=== PATIENT | female | born 1985 | race Two or more races ===

== ENCOUNTER 2019-04-19 21:40 | Emergency (ER) | payer MEDICAID ==
[~2019-04-19] VITALS: Ht 167.6 cm; Wt 72.6 kg
[2019-04-19 21:40] VITALS: BP 160/100
--- NOTE | 2019-04-19 21:40 | NUR ---
ED Nurse Note: Pt brought in by an ambulance with [employer] c/o medical clearance. Per EMS, pt was combative, spitting, not answering questions. Unable to cooperate, poor historian. Not in any distress. Pt is under custody.
--- NOTE | 2019-04-19 21:42 | NUR ---
ED Nurse Note: ERMD at bedside.
--- NOTE | 2019-04-19 21:48 | Emergency Room Report ---
History of Present Illness General Chief Complaint: Medical Clearance Source: Patient, EMS, Law Enforcement Present Illness HPI 34-year-old female history of mental illness, presents with combative nature, patient apparently was vandalizing the facility she was out, refusing to answer my questions unknown aggravating leaving factors severity was moderate, constant patient states "that you are now on a hit list" patient states I do not have answering questions I refused to answer any questions she also states "to take the spit mask off me and I'll spit on you." History is limited because patient refused to answer questions Allergies: Coded Allergies: LORAZEPAM (Verified Allergy, Unknown, 04/19/19) Patient History Limited by: medical condition - Refusing to answer questions Past Medical History: see triage record Reviewed Nursing Documentation: PMH: Agreed; PSxH: Agreed Review of Systems All Other Systems: limited - Refusing to answer questions Physical Exam Vital Signs Date Time Temp Pulse Resp B/P (MAP) Pulse Ox O2 Delivery O2 Flow Rate FiO2 04/19/19 21:33 97.9 98 18 160/100 (120) 100 Room Air General Appearance: well appearing, no apparent distress Head: normocephalic, atraumatic, other - Currently has a spit mask on Eyes: bilateral eye PERRL, bilateral eye EOMI ENT: hearing grossly normal, normal voice Neck: full range of motion, supple Respiratory: no respiratory distress, speaking full sentences Musculoskeletal: normal inspection Neurologic: alert, oriented, normal gait Psychiatric: mood/affect normal Skin: no rash Medical Decision Making Diagnostic Impression: Primary Impression: Medical clearance for incarceration ER Course 34-year-old female presents for medical clearance for incarceration patient is refusing answer question patient is also threatening doctor Patient is currently medically clear at this time she is refusing further examination disposition incarceration Last Vital Signs Date Time Temp Pulse Resp B/P (MAP) Pulse Ox O2 Delivery O2 Flow Rate FiO2 04/19/19 21:33 97.9 98 18 160/100 (120) 100 Room Air Disposition: D/C TO LAW ENFORCEMENT IN CUST Condition: Stable Referrals: [facility] Departure Forms: Care Home Clearance Patient Instructions: Medical Screening Exam Additional Instructions: The patient was provided with discharge instructions, notified to follow-up with a primary care doctor and or specialist in the next 24-48 hours, and to return to the ED if they have worsening of their symptoms. Please note that this report is being documented using DRAGON technology. This can lead to erroneous entry secondary to incorrect interpretation by the dictating instrument. Mike Dinh MD Apr 19, 2019 21:48
[2019-04-19 21:53] VITALS: BP 160/100
--- NOTE | 2019-04-19 21:53 | NUR ---
ED Nurse Note: Pt cleared by ERMD for discharge. DC instructions was given and explained to pt and officers verbalized understanding of teachings. All medical deviecs such as ID band removed. Pt is AAO x4, ambulatory and left with all personal belongings. Pt is under custody and left with [employer].
== END 2019-04-19 21:53 ==
LOC: EMR 21:40 → EDBD 21:40 → EMR 21:53
DX: Z00.00 Encounter for general adult medical examination without abnormal findings (principal); Z88.8 Allergy status to other drugs, medicaments and biological substances
CPT/HCPCS: 99281